=== PATIENT | female | born 1965 | race Caucasian/White ===

== ENCOUNTER 2022-06-08 16:04 | Observation (INO) ==
[2022-06-08] MEDS ORDERED: SODIUM CHLORIDE 0.9% 1,000 ML IV STA (18:32)
[2022-06-08 18:37] LABS: Basophils % 0.2 % (0.0-0.8); Eosinophils # 0.1 10*3/uL (0.0-0.87); Eosinophils % 0.5 % (0.00-10.9); Hematocrit 43.8 VOL% (35.7-47.0); Hemoglobin 14.8 GM/DL (12.0-16.0); Immature Granulocytes % 0.4 %; Immature Granulocytes Absolute 0.06 #; Lymphocytes # 3.1 10*3/uL (1.4-4.0); Lymphocytes % 20.8 % (21.3-54.2); Mean Corpuscular HGB Conc 33.8 GM/DL (32-36); Mean Corpuscular Volume 92.4 FL (87-102); Mean Platelet Volume 11.1 FL (9.6-12.0); Monocytes # 1.1 10*3/uL (0.11-0.8); Monocytes % 7.5 % (1.7-12.7); Neutrophils % 70.6 % (38.7-73.9); Platelet Count 395 T/CUMM (130-400); Red Blood Count 4.74 MC/CUMM (3.8-5.5); Red Cell Distribution Width 12.9 % (9.3-17.3)
[2022-06-08 18:49] LABS: Albumin 3.9 G/DL (3.4-5.0); Bilirubin,Total 0.5 MG/DL (0.20-1.00); Calcium 9.7 MG/DL (8.5-10.1); Total Protein 7.6 G/DL (6.4-8.2)
[2022-06-08] MEDS ORDERED: MORPHINE 2 MG/1 ML SYRINGE IV STA (19:07)
[2022-06-08] MEDS ORDERED: methylPREDNISolone SOD SUC 125 MG/2 ML VIAL IV STA (19:07)
[2022-06-08] MEDS ORDERED: ALBUTEROL/IPRATROPIUM 3 ML NEB RESP TX STA (19:07)
[2022-06-08] MEDS ORDERED: ONDANSETRON 4 MG/2 ML VIAL IV ONE (19:07)
[2022-06-08 20:25] LABS: Hyaline Casts,Urine 6 /LPF (0-3); Mucus,Urine Occasional /LPF (Occasional); RBC,Urine 1 /HPF (0-4); Squamous Epithelial Cell,Urine Occasional /HPF (0-10)
[2022-06-08 20:27] LABS: Bilirubin,Urine Negative (Negative); Blood, Urine Negative (Negative); Glucose,Urine (UA) Negative (Negative); Ketones,Urine Negative (Negative); Nitrite,Urine Negative (Negative); Protein,Urine Trace mg/dL (Negative); Urine Appearance Clear (Clear); Urine Color Yellow (Yellow); Urine Urobilinogen 0.2 eU/dL (<2.0)
[2022-06-08] MEDS ORDERED: LEVOFLOXACIN INJ 500 MG/100 ML PREMIX IV ONE (20:39)
[2022-06-08] MEDS ORDERED: ACETAMINOPHEN 325 MG TABLET PO PRN (21:11)
[2022-06-08] MEDS ORDERED: MORPHINE 2 MG/1 ML SYRINGE IV PRN (21:11)
[2022-06-08] MEDS ORDERED: GLUCAGON 1 MG VIAL IM PRN (21:11)
[2022-06-08] MEDS ORDERED: hydrALAZINE 20 MG/1 ML VIAL IV PRN (21:11)
[2022-06-08] MEDS ORDERED: ONDANSETRON 4 MG/2 ML VIAL IV PRN (21:11)
[2022-06-08] MEDS ORDERED: DEXTROSE 10% 250 ML BAG IV PRN (21:31)
[2022-06-08] MEDS ORDERED: diphenhydrAMINE 2% CREAM 28 GM TUBE TOP PRN (21:37)
[2022-06-08] MEDS ORDERED: diphenhydrAMINE CAP 25 MG CAPSULE PO PRN (21:37)
[2022-06-08] MEDS ORDERED: NICOTINE 21 MG/24 HR PATCH TRANSDERM PRN (21:53)
[2022-06-08] MEDS: cefTRIAXone 1,000 MG in SODIUM CHLORIDE 0.9% 100 ML IV SCH (22:39)
[2022-06-08] MEDS: THEOPHYLLINE ER 300 MG TABLET PO SCH (22:52)
[2022-06-08] MEDS: ALBUTEROL/IPRATROPIUM 3 ML NEB RESP TX SCH (23:45)
[2022-06-08] MEDS ORDERED: PNEUMOCOCCAL VACCINE (23 VALENT) 0.5 ML VIAL IM ONE (23:55)
[2022-06-09] MEDS: LACTATED RINGERS 1,000 ML IV SCH ×2 (00:07→12:40)
[2022-06-09] MEDS: metroNIDAZOLE INJ 500 MG/100 ML PREMIX IV SCH ×4 (00:08→21:41)
[2022-06-09 05:07] LABS: Basophils % 0.1 % (0.0-0.8); Hematocrit 41.4 VOL% (35.7-47.0); Hemoglobin 13.2 GM/DL (12.0-16.0); Immature Granulocytes % 0.3 %; Immature Granulocytes Absolute 0.04 #; Lymphocytes # 0.7 10*3/uL (1.4-4.0); Lymphocytes % 6.1 % (21.3-54.2); Mean Corpuscular HGB Conc 31.9 GM/DL (32-36); Mean Corpuscular Volume 95.2 FL (87-102); Monocytes # 0.1 10*3/uL (0.11-0.8); Monocytes % 0.5 % (1.7-12.7); Platelet Count 324 T/CUMM (130-400); Red Blood Count 4.35 MC/CUMM (3.8-5.5); Red Cell Distribution Width 12.9 % (9.3-17.3); White Blood Count 11.5 T/CUMM (4-12)
[2022-06-09 05:33] LABS: Calcium 8.9 MG/DL (8.5-10.1); Osmolality,Calculated 275.8 MOS/KG (273-304); Potassium 4.2 MMOL/L (3.5-5.1)
[2022-06-09] MEDS: methylPREDNISolone SOD SUC 40 MG/1 ML VIAL IV SCH ×3 (06:14→21:37)
[2022-06-09 06:59] LABS: Lymphocytes 6 % (20-55); Total Cells Counted 100
[2022-06-09 07:00] LABS: Platelet Estimate Adequate
[2022-06-09] MEDS: ALBUTEROL/IPRATROPIUM 3 ML NEB RESP TX SCH ×3 (07:35→20:09)
[2022-06-09] MEDS: THEOPHYLLINE ER 300 MG TABLET PO SCH ×2 (08:00→21:31)
[2022-06-09] MEDS: PANTOPRAZOLE 40 MG TABLET PO SCH (08:00)
[2022-06-09] MEDS: cefTRIAXone 1,000 MG in SODIUM CHLORIDE 0.9% 100 ML IV SCH (21:32)
[2022-06-10] MEDS: ALBUTEROL/IPRATROPIUM 3 ML NEB RESP TX SCH ×2 (00:33→08:10)
[2022-06-10] MEDS: LACTATED RINGERS 1,000 ML IV SCH ×2 (01:26→11:57)
[2022-06-10 06:11] LABS: Basophils % 0.1 % (0.0-0.8); Hematocrit 35.8 VOL% (35.7-47.0); Hemoglobin 12.1 GM/DL (12.0-16.0); Immature Granulocytes % 1.2 %; Immature Granulocytes Absolute 0.24 #; Lymphocytes # 1.3 10*3/uL (1.4-4.0); Lymphocytes % 6.8 % (21.3-54.2); Mean Corpuscular HGB Conc 33.8 GM/DL (32-36); Mean Corpuscular Volume 92.3 FL (87-102); Mean Platelet Volume 11.1 FL (9.6-12.0); Monocytes # 0.8 10*3/uL (0.11-0.8); Monocytes % 4.3 % (1.7-12.7); Neutrophils % 87.6 % (38.7-73.9); Platelet Count 322 T/CUMM (130-400); Red Blood Count 3.88 MC/CUMM (3.8-5.5); Red Cell Distribution Width 12.8 % (9.3-17.3); White Blood Count 19.4 T/CUMM (4-12)
[2022-06-10 06:31] LABS: Alanine Aminotransferase 20 U/L (13-56); Albumin 2.9 G/DL (3.4-5.0); Alkaline Phosphatase 68 U/L (45-117); Aspartate Amino Transferase 18 U/L (0-37); Bilirubin,Total < 0.39 MG/DL (0.20-1.00); Blood Urea Nitrogen 12 MG/DL (7-18); Calcium 8.7 MG/DL (8.5-10.1); Carbon Dioxide 27 MMOL/L (21-32); Chloride 109 MMOL/L (98-107); Glucose 120 MG/DL (74-106); Osmolality,Calculated 281.3 MOS/KG (273-304); Potassium 3.8 MMOL/L (3.5-5.1); Sodium 141 MMOL/L (136-145)
[2022-06-10] MEDS: metroNIDAZOLE INJ 500 MG/100 ML PREMIX IV SCH (06:34)
[2022-06-10] MEDS: methylPREDNISolone SOD SUC 40 MG/1 ML VIAL IV SCH (06:36)
[2022-06-10 07:57] VITALS: BP 111/75
[2022-06-10] MEDS: THEOPHYLLINE ER 300 MG TABLET PO SCH (08:16)
[2022-06-10] MEDS: PANTOPRAZOLE 40 MG TABLET PO SCH (08:16)
== END 2022-06-10 12:13 | disposition home or self-care (01) ==
LOC: N.EDINP 16:04 → N.ED 16:04 → SUATTDRO 21:40 → N.3E 22:36
PROVIDERS: ADMIT Family Medicine; ATTEND Internal Medicine